=== PATIENT | female | born 2000 | race Hispanic/Latino ===

== ENCOUNTER 2021-10-13 18:36 | Emergency (ER) | payer SELFPAY | END 2021-10-13 19:58 | disposition home or self-care (01) | LOC: ERS 18:36 | DX: M54.50 Low back pain, unspecified (principal) | CPT/HCPCS: 99283 ==

== ENCOUNTER 2022-09-14 13:20 | Emergency (ER) | payer SELFPAY | END 2022-09-14 15:33 | disposition home or self-care (01) | LOC: ERS 13:20 | DX: J02.9 Acute pharyngitis, unspecified (principal) | CPT/HCPCS: 87081; 87430; 99283 ==